=== PATIENT | male | born 1955 | race Caucasian/White ===

== ENCOUNTER 2019-10-04 10:01 | Emergency (ER) | payer OTHER, SELFPAY ==
--- NOTE | ~2019-10-04 | XR_ITS ---
EXAMINATION: XR forearm RT 2V DATE: 10/04/2019 10:39 INDICATION: Right forearm pain and injury. TECHNIQUE: 2 views of right forearm were obtained. COMPARISON: None. FINDINGS: Bone alignment is normal. No fracture. There is mild elbow joint osteoarthritis. There is a n elbow joint effusion. There are enthesophytes at the medial and lateral humeral epicondyles. IMPRESSION: 1. Elbow joint effusion. No fracture identified. 2. Mild right elbow joint osteoarthritis. Reviewed, dictated and finalized at location A.
--- NOTE | ~2019-10-04 | XR_ITS ---
EXAMINATION: XR wrist LT min 3V DATE: 10/04/2019 10:40 INDICATION: Left wrist pain. Injury. TECHNIQUE: 4 views of left wrist were obtained. COMPARISON: None. FINDINGS: Bone alignment is normal. No fracture. There is mild osteoarthritis of triscaphe joint and first metacarpophalangeal joint. IMPRESSION: 1. Mild polyarticular osteoarthritis. Reviewed, dictated and finalized at location A.
[2019-10-04 10:16] VITALS: BP 156/99; PULSE 84; RESP 20; TEMP 36.4; O2SAT 96
--- NOTE | 2019-10-04 10:21 | ED.UPPEXIN ---
HPI - Extremity Injury (Upper) General Chief Complaint: Extremity Injury, Upper Stated Complaint: right elbow,left wrist/hip History of Present Illness HPI narrative: This is a 64 year old male that fell in [place] and is having pain. Patient is unable to move and currently has it in a sling on the right. Patient is also having pain on the left wrist. Related Data Home Medications Medication Instructions Recorded Confirmed amlodipine [Norvasc] 5 mg PO DAILY 10/04/19 10/04/19 hydrochlorothiazide 25 mg PO DAILY 10/04/19 10/04/19 losartan 100 mg PO DAILY 10/04/19 10/04/19 metformin 500 mg PO BID 10/04/19 10/04/19 sitagliptin [Januvia] 100 mg PO DAILY 10/04/19 10/04/19 Allergies Allergy/AdvReac Type Severity Reaction Status Date / Time No Known Allergies Allergy Verified 02/18/14 18:39 Review of Systems Review of Systems: Narrative: CONSTITUTIONAL: Denies fever, chills, or sweats. EYES: Denies visual changes, redness, or discharge. ENT: Denies rhinorrhea, congestion, sore throat, or otalgia. CARDIOVASCULAR:Denies chest pain, palpitations, or edema. RESPIRATORY: Denies cough or dyspnea. GASTROINTESTINAL: Denies abdominal pain, nausea, vomiting, or diarrhea. GENITOURINARY: Denies dysuria or hematuria. SKIN:[Denies rash or itching. MUSCULOSKELETAL:Denies back pain, joint pain, or myalgia. Pain in the right arm from the elbow to the wrist left wrist is hurting and having pain . NEUROLOGIC: Denies headache, numbness, or weakness. PSYCHIATRIC:Denies anxiety or depression [facility] Social History Social History Gender identity (if verbalized by the patient): Male Comments At time as signature, I have reviewed and agree with nursing past medical, social, surgical and family history. Please see nursing chart for further information. There is no relevant family history pertinent to the presenting complaint. Your blood pressure was elevated in the clinic today, I feel that this is due to your acute illness rather than essential hypertension. please follow-up with your regular doctor for further evaluation and monitor for evaluation of hypertension Please FABRIZIO schedule a followup visit with your personal physician with in the next 1-4 weeks for further evaluation and treatment. Also, ask your personal physician to assist you regarding blood pressure. Even blood pressure exceeding 120/80 may indicate pre-hypertension. If your symptoms persist, change or worsen significantly before you can contact your personal physician then please, without delay, go to the emergency department for further evaluation. Exam Narrative: Exam Narrative: GENERAL:Well-appearing, well-nourished, and in no acute distress. HEAD:Normocephalic, atraumatic. EYES: PERRLA and EOMI. ENT: Nares clear, no rhinorrhea or epistaxis. Mucous membranes moist. NECK: Supple. CHEST: Clear to auscultation. No respiratory distress. HEART: Regular rate and rhythm. No murmur heard. Normal peripheral pulses. ABDOMEN: Soft, nontender, nondistended, normal active bowel sounds. EXTREMITIES: Decrease range of motion due to pain. Mild edema to right elbow. SKIN: Warm, dry, no rash. NEURO: No focal deficits. Alert and oriented x3. Course Vital Signs Vital signs: Vital Signs Temperature 97.5 F L 10/04/19 10:16 Pulse Rate 84 10/04/19 10:16 Respiratory Rate 20 10/04/19 10:16 Blood Pressure 156/99 H 10/04/19 10:16 Pulse Oximetry 96 10/04/19 10:16 Temperature 97.5 F L 10/04/19 10:16 Pulse Rate 84 10/04/19 10:16 Respiratory Rate 20 10/04/19 10:16 Blood Pressure 156/99 H 10/04/19 10:16 Pulse Oximetry 96 10/04/19 10:16 Discharge Plan Discharge Clinical Impression: Sprain and strain of wrist, Effusion of elbow joint, right Elbow sprain Qualifiers: Encounter type: initial encounter Laterality: right Qualified Code(s): S53.401A - Unspecified sprain of right elbow, initial encounter Patient Disposition: Home, Self-Care Condition
== END 2019-10-04 11:12 | disposition home or self-care (01) ==
PROVIDERS: Emergency Provider Nurse Practitioner Family
DX: S53.401A Unspecified sprain of right elbow, initial encounter (principal); S63.502A Unspecified sprain of left wrist, initial encounter; S66.912A Strain of unspecified muscle, fascia and tendon at wrist and hand level, left hand, initial encounter; W19.XXXA Unspecified fall, initial encounter; M25.421 Effusion, right elbow; I10 Essential (primary) hypertension; E11.9 Type 2 diabetes mellitus without complications
CPT/HCPCS: 73090; 73110; 99214; G0463

== ENCOUNTER 2022-05-19 11:43 | Inpatient (IN) | payer MEDICARE, SELFPAY ==
[2022-05-19] VITALS (9 sets, daily range): BP systolic 149–163; BP diastolic 81–101; PULSE 79–90; RESP 12–18; TEMP 35.7–36.4; O2SAT 96–100; BMI 31.4
--- NOTE | ~2022-05-19 | CT_ITS ---
EXAMINATION: CT brain wo con INDICATION: Right arm numbness and tingling COMPARISON: None TECHNIQUE: Standard unenhanced head CT. The dose-length product (DLP) was 605.33 mGy-cm. The mA was a djusted according to patient size. Iterative reconstruction technique was employed. FINDINGS: There is no intracranial hemorrhage, acute infarction, or abnormal mass lesion. The ventric les are normal. There is no abnormal mass effect or midline shift. The dong-white matter differentiat ion is normal. The basal cisterns are patent. The orbits are normal. There is mild mucosal thickening of the paranasal sinuses. IMPRESSION: 1. No acute intracranial abnormality. Reviewed, dictated and finalized at location B.
--- NOTE | ~2022-05-19 | MR_ITS ---
EXAMINATION: MR brain/brain stem wo/w con DATE: 05/20/2022 09:51 INDICATION: Stroke with right arm numbness TECHNIQUE: Magnetic resonance imaging (MRI) of the brain and brainstem was performed without and with 20 mL Multihance intravenous contrast. Sequences included sagittal and axial T1-weighted SE, axial d iffusion-weighted FS SE, axial T2*-weighted GRE, axial T2-weighted FLAIR, and axial T2-weighted FSE. Postcontrast axial and coronal T1-weighted SE was obtained. Apparent diffusion coefficient (ADC) maps were created. COMPARISON: Head CT and CT angiogram dated 05/19/2022 FINDINGS: There are no areas of restricted diffusion to suggest acute infarction. No intracranial hemorrhage or abnormal intracranial mass lesion. There are scattered areas of nonspecific increased T2-weighted si gnal intensity in the cerebral white matter, predominantly involving the deep and periventricular whi te matter. There are no intraparenchymal signal abnormalities seen on the other pulse sequences. The ventricles are symmetric and normal in size. There are no abnormal extra-axial fluid collections. Erasmo w voids are seen in the cerebral arteries on the T2-weighted sequences consistent with their expected patency. Mild mucosal thickening in the bilateral ethmoid sinuses. Nonspecific 1.5-2 cm nodular lucille on of low signal intensity in the subcutaneous tissues in the midline nuchal region. No evident enhan cing component appreciated on postcontrast images. Visualized orbits and soft tissues are otherwise u nremarkable. There are no areas of abnormal enhancement on the post contrast images. IMPRESSION: 1. Mild scattered nonspecific white matter T2 hyperintensity which is within normal limits for age an d likely sequela of chronic small vessel ischemic disease. No acute infarct or other intracranial pro cess. 2. Nonspecific 1.5-2 cm nodular region of low signal intensity in the subcutaneous tissues at the mi dline nuchal region. The low signal intensity and absence of enhancement suggests either fibrosis or postoperative scarring. Correlate with clinical history. Reviewed, dictated and finalized at location A. IMPRESSION: 1. Mild scattered nonspecific white matter T2 hyperintensity which is within no rmal limits for age and likely sequela of chronic small vessel ischemic disease . No acute infarct or other intracranial process. 2. Nonspecific 1.5-2 cm nodular region of low signal intensity in the subcutan eous tissues at the midline nuchal region. The low signal intensity and absence of enhancement suggests either fibrosis or postoperative scarring. Correlate w ith clinical history.
--- NOTE | ~2022-05-19 | CT_ITS ---
EXAMINATION: CTA brain carotid DATE: 05/19/2022 14:20 INDICATION: Right hemiparesis. TECHNIQUE: Computed tomographic angiography (CTA) of the head was performed with 100 mL Omnipaque-350 intravenous contrast. CTA of the neck was performed with intravenous contrast. Automated exposure co ntrol and iterative reconstruction technique were employed. The dose-length product was 1220.56 mGy-c m. Maximum intensity projection and volume rendered 3D-reconstructions were created by the [facility] on a separate workstation. COMPARISON: Head CT 05/19/2022 FINDINGS: HEAD CTA: There is no intracranial hemorrhage, acute infarction, or abnormal intracranial mass lesion . The ventricles are normal in size. The orbits are normal. There is mild mucosal thickening in the p aranasal sinuses. The mastoid air cells are normal. Right vertebral artery is dominant. There is tota l occlusion of distal left vertebral artery. There is moderate stenosis of right P1 posterior cerebra l artery. There is total occlusion of left P1 posterior cerebral artery with reconstitution. The post erior communicating arteries are normal. There is mild stenosis of intracranial right internal caroti d artery. There is moderate stenosis of intracranial left internal carotid artery. There is moderate stenosis of left M1 middle cerebral artery. There is no significant stenosis of the anterior cerebral arteries. Anterior communicating artery is normal. There is no aneurysm. NECK CTA: Calcified mediastinal lymph nodes are consistent with old granulomatous disease. There is n o free intraperitoneal fluid. There is plaque in the proximal internal carotid arteries. There is 0% stenosis of the proximal right internal carotid artery relative to normal distal artery lumen diamete r (NASCET criteria). There is 0% stenosis of the proximal left internal carotid artery relative to no rmal distal artery lumen diameter. There is mild cervical spondylosis. IMPRESSION: 1. Normal brain parenchyma. 2. 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 3. 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 4. Moderate stenosis of intracranial left internal carotid artery, left M1 middle cerebral artery, an d right P1 posterior cerebral artery. 5. 0% stenosis of the proximal internal carotid arteries relative to normal distal artery lumen diame ters (NASCET criteria). Reviewed, dictated and finalized at location A. IMPRESSION: 1. Normal brain parenchyma. 2. 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 3. 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 4. Moderate stenosis of intracranial left internal carotid artery, left M1 midd le cerebral artery, and right P1 posterior cerebral artery. 5. 0% stenosis of the proximal internal carotid arteries relative to normal dis crystal artery lumen diameters (NASCET criteria).
--- NOTE | ~2022-05-19 | XR_ITS ---
EXAMINATION: XR chest 1V DATE: 05/19/2022 12:26 INDICATION: Right-sided numbness and tingling. TECHNIQUE: A single frontal view of the chest was obtained on 2 radiographs. COMPARISON: Chest 2 views 06/29/2012 FINDINGS: There is mild atelectasis in left lower lung zone. No pleural effusion or pneumothorax. The heart size is normal. Calcified mediastinal lymph nodes are consistent with old granulomatous diseas e. IMPRESSION: 1. Mild atelectasis in left lower lung zone. Reviewed, dictated and finalized at location A.
--- NOTE | 2022-05-19 12:06 | ECG_ITS ---
Measurements Intervals [place] Rate: 81 P: 53 RI: 228 QRS: -7 QRSD: 94 T: 20 QT: 381 QTc: 444 Interpretive Statements SINUS RHYTHM WITH FIRST DEGREE AV BLOCK NONSPECIFIC ST & T-WAVE ABNORMALITY NO PREVIOUS ECG AVAILABLE FOR COMPARISON Electronically Signed On 05-20-2022 14:58:24 CDT by Kayla Gomez M.D.
[2022-05-19 13:07] LABS: Basophils Absolute Auto 0.1 K/mm3 (0.0-0.1); Basophils Percent Auto 0.7 % (0.2-1.2); Eosinophils Absolute Auto 0.1 K/mm3 (0-0.3); Hematocrit 44.7 % (42.0-52.0); Hemoglobin 15.1 g/dL (14.0-18.0); Immature Granulocyte Absolute 0.03 K/mm3 (0.00-0.031); Immature Granulocyte Percent A 0.4 % (0-0.5); Lymphocytes Absolute Auto 1.43 K/mm3 (0.9-3.2); Lymphocytes Percent Auto 20.3 % (18.3-44.2); Mean Corpuscular HGB Conc 33.8 g/dl (32-36); Mean Corpuscular Hemoglobin 30.4 pg (26-34); Mean Corpuscular Volume 89.9 fl (80-100); Mean Platelet Volume 10.3 fl (7.4-10.4); Monocytes Absolute Auto 0.7 K/mm3 (0.1-0.6); Monocytes Percent Auto 9.5 % (2.6-8.5); Neutrophils Absolute Auto 4.7 K/mm3 (1.3-6.7); Neutrophils Percent Auto 67.1 % (45.5-73.1); Platelet Count Result 248 k/mm3 (150-375); Red Blood Count 4.97 M/mm3 (4.6-6.20); Red Cell Distribution Width 12.6 % (11.5-14.5); White Blood Count 7.1 K/mm3 (4.5-10.0)
[2022-05-19 13:19] LABS: Alanine Aminotransferase 36 U/L (6-50); Albumin Level 4.7 g/dL (3.5-5.1); Alkaline Phosphatase 110 U/L (38-126); Anion Gap 9 mmol/L (8-16); Aspartate Amino Transferase 27 U/L (17-59); Bilirubin,Total 0.7 mg/dL (0.2-1.3); Blood Urea Nitrogen 15 mg/dL (9-20); Calcium 9.5 mg/dL (8.4-10.2); Carbon Dioxide 26 mmol/L (22-30); Chloride 100 mmol/L (98-107); Estimated CRCL calculation 140 ml/min; Estimated Glomerular Filt Rate > 60; Glucose 263 mg/dL (65-110); Sodium 135 mmol/L (137-145)
[2022-05-19 13:20] LABS: Prothrombin Time 12.9 Seconds (11.1-14.7)
[2022-05-19 13:21] LABS: Partial Thromboplastin Time 31.4 SECONDS (22.3-36.8)
[2022-05-19 13:31] LABS: Troponin I 0.083 ng/mL (0.000-0.034)
--- NOTE | 2022-05-19 14:00 | ED.NEUROSD ---
HPI - Neuro Symptoms/Deficit General Chief Complaint: Neuro Symptoms/Deficit Stated Complaint: right sided weakness since 0500 Time Seen by Provider: 05/19/22 13:53 Source: patient and RN notes reviewed Mode of arrival: ambulatory Limitations: no limitations History of Present Illness HPI Narrative: This is a 66 year old male with history of hypertension who presents for right side weakness and numbness. PAtient reports he woke up this morning at 5 am with right side weakness and right side numbness. He went to bed around 9 pm last night. His has also noticed that patient has unsteady gait this morning. Patient denies headache, dizziness, facial droop, chest pain, sob. He denies history of TIA or stroke. He also denies speech issues today Related Data Home Medications Medication Instructions Recorded Confirmed amlodipine 5 mg tablet (Norvasc) 5 mg PO DAILY 10/04/19 05/19/22 hydrochlorothiazide 25 mg tablet 25 mg PO DAILY 10/04/19 05/19/22 losartan 100 mg tablet 100 mg PO DAILY 10/04/19 05/19/22 metformin 500 mg tablet 100 mg PO BID 10/04/19 05/19/22 acetaminophen 500 mg tablet 1,000 mg PO QID PRN Pain 05/19/22 05/19/22 ascorbic acid (vitamin C) 1,000 mg 1,000 mg PO HS 05/19/22 05/19/22 tablet dapagliflozin 10 mg tablet 10 mg PO DAILY 05/19/22 05/19/22 (Farxiga) glipizide 5 mg tablet, extended 5 mg PO DAILY 05/19/22 05/19/22 release 24 hr magnesium 400 mg PO HS 05/19/22 05/19/22 trazodone 50 mg tablet 75 mg PO HS 05/19/22 05/19/22 Allergies Allergy/AdvReac Type Severity Reaction Status Date / Time No Known Allergies Allergy Verified 05/19/22 18:07 Review of Systems Constitutional: Constitutional: Denies weakness Cardiovascular: Cardiovascular: Denies syncope, Denies rapid heart rate, Denies irregular heart rhythm, Denies leg edema and Denies dyspnea Respiratory: Respiratory: Denies chest congestion, Denies hemoptysis, Denies excessive phlegm production and Denies dyspnea Gastrointestinal: Gastrointestinal: Denies abdominal pain, Denies hematochezia, Denies diarrhea and Denies vomiting Genitourinary: Genitourinary: Denies hematuria, Denies dysuria, Denies penile discharge and Denies testicular pain Musculoskeletal: Musculoskeletal: Denies joint swelling, Denies loss of height and Denies muscle weakness Neurologic: Denies syncope, Reports focal weakness, Reports numbness and Reports weakness PMFSH Past Medical History Medical History Diabetes mellitus Hypertension Obstructive sleep apnea Surgical History Surgical History History of tonsillectomy S/P foot surgery, left Family History Family History Mother Lung cancer Father Acute myocardial infarction Rheumatoid arthritis Social History Social History Social History: The patient states that he lives a home alone. He has 1 daughter. He has a significant other. 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 Code status full code Smoking packs per day: 2 Smoking cigarettes per day: 40.0 Years smoked: 30 Smoking pack-years: 60.00 Smoking status: Former smoker Alcohol intake: current Drinks per week: 5 Substance use: former Substance use type: marijuana Last use: years ago Lack of Transportation: No Lack of Food: Never True Current Housing: I Have Housing Concerned About Future Housing: No Difficulty Paying Gas/Electric Bills: No Difficulty Paying for Meds: No Currently Unemployed: No Education: Decline to Answer Difficulty w/ Childcare or Family Care: No Gender identity (if verbalized by the patient): Male Spiritual care concerns: No Exam Const: General: no acute distress and alert Nutritional Appearance: well nourished Orientation/consciousness: patient oriented x3 HENMT
[2022-05-19] MEDS: ASPIRIN 81 MG CHEWABLE TABLET 324 MG PO (16:16)
[2022-05-19] MEDS: CLOPIDOGREL BISULFATE 75 MG TABLET 150 MG PO (16:19)
[2022-05-19 16:38] LABS: Troponin I 0.075 ng/mL (0.000-0.034)
--- NOTE | 2022-05-19 17:55 | ADMGEN ---
This patient, Jesus Laughlin, was admitted to [facility] Room 314-02. Patient/family oriented to hospital policies and general routines including ID bracelet, bed and alarms, visiting hours, pain management, procedures, bathroom and other care routines, personal items, smoking policy, room service/diet, and visiting hours. Information on how to activate the Rapid Response Team has been discussed. Patient/Family are encouraged to report perceived risks to care and to ask questions if they do not understand what they are told or what they should do.
--- NOTE | 2022-05-19 18:55 | PC.NURSE ---
Pt unaware of cva diagnosis. Deferred CVA teaching. No anticoagulation given.
--- NOTE | 2022-05-19 21:44 | PM.IMHP ---
H&P: HPI History of Present Illness Date/Time: 05/19/22 21:44 Chief Complaint: Neuro symptoms Narrative: This is a 66-year-old male patient who has a history of hypertension and diabetes. The patient came to the emergency room with complaints of right-sided weakness and numbness. Patient stated that he woke up at 5:00 a.m. this morning and had right-sided weakness as well some numbness. The patient was having difficulty moving his right arm and right leg. He was having difficulty ambulating. The patient went to bed around 9:00 a.m. last night and that was his last reported normal. The noticed that the patient was unsteady this morning. The patient denies any chest pain or palpitation he denies any headache dizziness or any facial droop. No chest pain. He has no prior history of any strokes or TIAs. Patient is not having any difficulty with his speech at this time. The patient has chronic amblyopia to right eye. The patient denies any double vision or any difficulty seeing. Head and neck CTA was read as the followingNormal brain parenchyma. 2. 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 3. 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 4. Moderate stenosis of intracranial left internal carotid artery, left M1 middle cerebral artery, and right P1 posterior cerebral artery. 5. 0% stenosis of the proximal internal carotid arteries relative to normal distal artery lumen diameters (NASCET criteria). Chest x-ray was read as mild atelectasis in left lower lung zones. Head CT was read as no acute intracranial abnormality. The patient was not a candidate for tPA as he is outside the window for treatment. Neurology has been consulted and recommended Plavix and aspirin. His NIH score was noted to be 4.. The patient was given a full-strength aspirin and 150 mg of Plavix. Troponin 0.083 and 0.075.. His blood sugar was noted to be 242. The patient is being admitted to inpatient status on the date of service of 05/19/2022. Review of Systems Review of Systems: All systems reviewed & are unremarkable except as noted in HPI and below Constitutional: Constitutional: Reports as per HPI and Reports no additional constitutional complaints Eyes: Eyes: Reports as per HPI and Reports no additional eye complaints ENT: Reports system reviewed and no additional complaints, except as documented and Reports Normal hearing present Cardiovascular: Cardiovascular: Reports no additional cardiovascular complaints Respiratory: Respiratory: Reports no additional respiratory complaints and Reports no additional respiratory complaints Gastrointestinal: Gastrointestinal: Reports as per HPI and Reports no additional gastrointestinal complaints Musculoskeletal: Musculoskeletal: Reports no additional musculoskeletal complaints Integumentary/Breasts: Skin/Breast: Reports system reviewed and no additional complaints, except as docu and Reports as per HPI Neurologic: Reports system reviewed and no additional complaints, except as documented, Reports as per HPI and Reports Normal hearing present Psychiatric: Psychiatric: Reports no additional psychiatric complaints and Reports as per HPI Endocrine: Endocrine: Reports no additional endocrine complaints Hematologic/Lymphatic: Hematologic/Lymphatic: Reports no additional hematologic/lymphatic complaints Allergic/Immunologic: Allergic/Immunologic: Reports no additional allergic/immunologic complaints [facility] Past Medical History Medical History (Updated 05/20/22 @ 00:12 by Itzel Nunes NP) Diabetes mellitus Hypertension Obstructive sleep apnea Surgical History Surgical History (Updated 05/20/22 @ 00:12 by Itzel Nunes NP) History of tonsillectomy S/P foot surgery, left Family History Family History (Updated 05/20/22 @ 00:14 by Itzel Nunes NP) Mother Lung cancer Father Acute myocardial infarction Rheumatoid arthritis Social History Social History (
[2022-05-19 22:12] LABS: Glucose Point of Care 242 mg/dl (65-105)
[2022-05-20] VITALS (10 sets, daily range): BP systolic 147–178; BP diastolic 81–95; PULSE 70–91; RESP 16–20; TEMP 35.6–36.7; O2SAT 96–98
--- NOTE | 2022-05-20 | ECHO_ITS ---
Patient Info Name: Jesus Laughlin Age: 67 years : 1955 Gender: Male Ht: 75 in Wt: 251 lbs BSA: 2.48 m2 HR: 83 bpm BP: 178 / 89 mmHg Heart Rhythm: Sinus Rhythm Exam Date: 05/20/2022 10:45 AM Exam Location: [facility] Patient Status: Inpatient Admit Date: 05/19/2022 Staff Ordering Physician: Itzel Nunes NP Still Operator Helper: Frederic Green RDCS, RT Attending Provider: Nela Kraft PA-C Referring Physician: Des GARCIA; Exam Type: CA echo dop bubble study w con Study Info Indications - CVA Complete two-dimentional, color flow and Doppler transthoracic echocardiogram is performed with agitated saline and with contrast to opacify the left ventricle and to improve the delineation of the left ventricle endocardial borders. Summary 1. Left ventricular systolic function is normal, estimated at 60-65%. 2. There is moderately increased left ventricular wall thickness. 3. The left ventricular diastolic function is grade I diastolic dysfunction. 4. Right ventricular systolic function is normal. 5. Intact interatrial septum visualized by color flow and agitated saline imaging. Negative bubble study. 6. There is mild aortic valve calcification. 7. There is mild aortic valve regurgitation. 8. There is mild mitral valve regurgitation. 9. There is mild aortic atherosclerosis. 10. The aortic root size at the sinus of Valsalva is dilated. Left Ventricle Left ventricular chamber dimension is normal. Left ventricular systolic function is normal, estimated at 60-65%. There is moderately increased left ventricular wall thickness. The left ventricular diastolic function is grade I diastolic dysfunction. Global longitudinal strain is abnormal at -12 %. Right Ventricle Right ventricular chamber dimension is normal. Right ventricular systolic function is normal. Left Atria Left atrial chamber dimension is normal. Right Atria Right atrial chamber dimension is normal. Atrial Septum Intact interatrial septum visualized by color flow and agitated saline imaging. Negative bubble study. Aortic Valve The aortic valve is probable trileaflet. There is no aortic valve stenosis. There is mild aortic valve regurgitation. There is mild aortic valve calcification. Pulmonic Valve The pulmonic valve is not well visualized. Mitral Valve The mitral valve has normal leaflets. There is mild mitral valve regurgitation. Tricuspid Valve There is trace tricuspid valve regurgitation. Pericardium/Pleural The pericardium appears epicardial fat pad. There is no pericardial effusion. Inferior Vena Cava Normal inferior vena cava with >50% collapse upon inspiration consistent with normal right atrial pressure, 3 mmHg. Aorta The aortic root size at the sinus of Valsalva is dilated. There is mild aortic atherosclerosis. Left Ventricular Outflow Tract Name Value Normal LVOT 2D LVOT Diameter 2.2 cm LVOT Doppler LVOT Peak Gradient 3 mmHg LVOT Mean Gradient 2 mmHg LVOT VTI 18 cm LVOT VTI/AV VTI Ratio
[2022-05-20] MEDS: WATER FOR IRRIGATION, STERILE 1,000 ML BOTTLE 1000 ML (00:33)
[2022-05-20] MEDS: ACETAMINOPHEN 500 MG TABLET 1000 MG PO (04:35)
[2022-05-20] MEDS: CLOPIDOGREL BISULFATE 75 MG TABLET PO (04:47)
[2022-05-20] MEDS: LOSARTAN POTASSIUM 100 MG TABLET PO (04:47)
[2022-05-20] MEDS: amLODIPine BESYLATE 5 MG TABLET PO (04:47)
[2022-05-20] MEDS: hydroCHLOROthiazide 25 MG TABLET PO (04:47)
[2022-05-20 07:42] LABS: Basophils Percent Auto 0.6 % (0.2-1.2); Eosinophils Absolute Auto 0.2 K/mm3 (0-0.3); Eosinophils Percent Auto 2.6 % (0-4.4); Hematocrit 43.5 % (42.0-52.0); Hemoglobin 14.6 g/dL (14.0-18.0); Immature Granulocyte Absolute 0.03 K/mm3 (0.00-0.031); Immature Granulocyte Percent A 0.4 % (0-0.5); Lymphocytes Absolute Auto 1.56 K/mm3 (0.9-3.2); Lymphocytes Percent Auto 22.5 % (18.3-44.2); Mean Corpuscular HGB Conc 33.6 g/dl (32-36); Mean Corpuscular Hemoglobin 30.4 pg (26-34); Mean Corpuscular Volume 90.4 fl (80-100); Mean Platelet Volume 10.6 fl (7.4-10.4); Monocytes Absolute Auto 0.8 K/mm3 (0.1-0.6); Monocytes Percent Auto 11.7 % (2.6-8.5); Neutrophils Absolute Auto 4.3 K/mm3 (1.3-6.7); Neutrophils Percent Auto 62.2 % (45.5-73.1); Platelet Count Result 239 k/mm3 (150-375); Red Blood Count 4.81 M/mm3 (4.6-6.20); Red Cell Distribution Width 12.6 % (11.5-14.5); White Blood Count 6.9 K/mm3 (4.5-10.0)
[2022-05-20 07:53] LABS: Alanine Aminotransferase 33 U/L (6-50); Albumin Level 4.2 g/dL (3.5-5.1); Alkaline Phosphatase 84 U/L (38-126); Anion Gap 7 mmol/L (8-16); Aspartate Amino Transferase 26 U/L (17-59); Bilirubin,Total 0.6 mg/dL (0.2-1.3); Blood Urea Nitrogen 18 mg/dL (9-20); Calcium 8.8 mg/dL (8.4-10.2); Carbon Dioxide 29 mmol/L (22-30); Chloride 98 mmol/L (98-107); Estimated CRCL calculation 120 ml/min; Estimated Glomerular Filt Rate > 60; Glucose 313 mg/dL (65-110); Magnesium 2.1 mg/dL (1.6-2.3); Potassium 3.9 mmol/L (3.4-5.0); Sodium 134 mmol/L (137-145)
[2022-05-20 08:15] LABS: Glucose Point of Care 303 mg/dl (65-105)
[2022-05-20] MEDS: INSULIN ASPART (*BKC) 100 UNITS/ML SUB-Q ×3 (08:16→18:35)
[2022-05-20] MEDS: glipiZIDE XL 5 MG TABCR PO (08:17)
--- NOTE | 2022-05-20 09:40 | ECG_ITS ---
Measurements Intervals [place] Rate: 72 P: -25 VA: 191 QRS: -15 QRSD: 102 T: 51 QT: 418 QTc: 457 Interpretive Statements SINUS RHYTHM NONSPECIFIC ST AND T WAVE ABNORMALITY COMPARED TO ECG 05/19/2022 13:55:34 NO SIGNIFICANT FINDINGS Electronically Signed On 05-20-2022 16:09:01 CDT by Kayla Gomez M.D.
--- NOTE | 2022-05-20 10:40 | PM.CNCAR ---
Assessment and Plan Assessment and plan (1) Elevated troponin: Code(s): R77.8 - Other specified abnormalities of plasma proteins Status: Acute Assessment and Plan: troponin levels were drawn and were found to be mildly elevated at 0.083, 0.075, and 0.047. this is not consistent with acute coronary syndrome. He is not having any chest pain and has no history of chest pain. He does however have multiple risk factors for coronary artery disease. Therefore, I recommended follow-up in our office with possible stress testing. Check a lipid panel. Echo is pending. Will follow up with the results of that study when they become available. History of Present Illness History of Present Illness Consult date/time: 05/20/22 10:40 Requesting physician: Nela Kraft PA-C Consult reason: Other (elevated troponin) Reason For Visit: Acute CVA Narrative: Mr. Laughlin is a 67-year-old male with a history of diabetes mellitus, hypertension, former smoker. This is a patient who presented to the hospital with a chief complaint of loss of equilibrium and right-sided weakness. 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 During the process of his initial workup troponin levels were drawn and were mildly elevated. He denies having chest pain at any point in time. He denies any shortness of breath, palpitations, syncope, presyncope, paroxysmal nocturnal dyspnea, orthopnea. Currently, he is resting comfortably in bed and has no complaints. He is wanting to know when he can leave the hospital. Review of Systems Review of Systems: All systems reviewed & are unremarkable except as noted in HPI and below PMFSH Past Medical History Medical History Diabetes mellitus Hypertension Obstructive sleep apnea Surgical History Surgical History History of tonsillectomy S/P foot surgery, left Family History Family History Mother Lung cancer Father Acute myocardial infarction Rheumatoid arthritis Social History Social History Social History: The patient states that he lives a home alone. He has 1 daughter. He has a significant other. 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 Code status full code Smoking packs per day: 2 Smoking cigarettes per day: 40.0 Years smoked: 30 Smoking pack-years: 60.00 Smoking status: Former smoker Alcohol intake: current Drinks per week: 5 Substance use: former Substance use type: marijuana Last use: years ago Lack of Transportation: No Lack of Food: Never True Current Housing: I Have Housing Concerned About Future Housing: No Difficulty Paying Gas/Electric Bills: No Difficulty Paying for Meds: No Currently Unemployed: No Education: Decline to Answer Difficulty w/ Childcare or Family Care: No Gender identity (if verbalized by the patient): Male Spiritual care concerns: No Meds Home Medications and Allergies Home Medications Medication Instructions Recorded Confirmed Type amlodipine 5 mg tablet (Norvasc) 5 mg PO DAILY 10/04/19 05/19/22 History hydrochlorothiazide 25 mg tablet 25 mg PO DAILY 10/04/19 05/19/22 History ibuprofen 600 mg tablet 600 mg PO TID PRN pain #20 tabs 10/04/19 05/19/22 Rx losartan 100 mg tablet 100 mg PO DAILY 10/04/19 05/19/22 History metformin 500 mg tablet 100 mg PO BID 10/04/19 05/19/22 History acetaminophen 500 mg tablet 1,000 mg PO QID PRN Pain 05/19/22 05/19/22 History ascorbic acid (vitamin C) 1,000 mg 1,000 mg PO HS 05/19/22 05/19/22 History tablet dapagliflozin 10 mg tablet 10 mg PO DAILY 05/19/22 05/19/22 History (Farxiga) glipizide 5 mg tablet, extended 5 mg PO DAILY 05/19/22 05/19/22 History rel
--- NOTE | 2022-05-20 11:10 | WPDNEURCNPN ---
Consult date: 05/20/22 HPI: Jesus Laughlin is a 67 year old male admitted to the hospital through the emergency room for the complaints of right-sided weakness since 5:00 a.m. patient arrived in the Emergency Room ambulatory condition with no limitation but complaining of the hypertension with right-sided weakness and numbness and with information that he woke up at 5:00 a.m. with the symptoms though he had gone to the bed last night at 9:00 p.m. perfectly fine patient was also noted to have unsteady gait by his in the morning he had no other associated complaints. 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 Review of Systems Review of Systems: All systems reviewed & are unremarkable except as noted in HPI and below PMFSH Past Medical History Medical History (Updated 05/20/22 @ 00:12 by Itzel Nunes NP) Diabetes mellitus Hypertension Obstructive sleep apnea Surgical History Surgical History (Updated 05/20/22 @ 00:12 by Itzel Nunes NP) History of tonsillectomy S/P foot surgery, left Family History Family History (Updated 05/20/22 @ 00:14 by Itzel Nunes NP) Mother Lung cancer Father Acute myocardial infarction Rheumatoid arthritis Social History Social History (Updated 05/20/22 @ 00:14 by Itzel Nunes NP) Social History: The patient states that he lives a home alone. He has 1 daughter. He has a significant other. 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 Code status full code Smoking packs per day: 2 Smoking cigarettes per day: 40.0 Years smoked: 30 Smoking pack-years: 60.00 Smoking status: Former smoker Alcohol intake: current Drinks per week: 5 Substance use: former Substance use type: marijuana Last use: years ago Lack of Transportation: No Lack of Food: Never True Current Housing: I Have Housing Concerned About Future Housing: No Difficulty Paying Gas/Electric Bills: No Difficulty Paying for Meds: No Currently Unemployed: No Education: Decline to Answer Difficulty w/ Childcare or Family Care: No Gender identity (if verbalized by the patient): Male Spiritual care concerns: No Meds Home Medications and Allergies Home Medications Medication Instructions Recorded Confirmed Type amlodipine 5 mg tablet (Norvasc) 5 mg PO DAILY 10/04/19 05/19/22 History hydrochlorothiazide 25 mg tablet 25 mg PO DAILY 10/04/19 05/19/22 History ibuprofen 600 mg tablet 600 mg PO TID PRN pain #20 tabs 10/04/19 05/19/22 Rx losartan 100 mg tablet 100 mg PO DAILY 10/04/19 05/19/22 History metformin 500 mg tablet 100 mg PO BID 10/04/19 05/19/22 History acetaminophen 500 mg tablet 1,000 mg PO QID PRN Pain 05/19/22 05/19/22 History ascorbic acid (vitamin C) 1,000 mg 1,000 mg PO HS 05/19/22 05/19/22 History tablet dapagliflozin 10 mg tablet 10 mg PO DAILY 05/19/22 05/19/22 History (Farxiga) glipizide 5 mg tablet, extended 5 mg PO DAILY 05/19/22 05/19/22 History release 24 hr magnesium 400 mg PO HS 05/19/22 05/19/22 History trazodone 50 mg tablet 75 mg PO HS 05/19/22 0
[2022-05-20] MEDS: PERFLUTREN LIPID MICROSPHERES 1.5 ML VIAL DILUTED TO 10 ML TOTAL VOLUME IV PUSH (11:20)
--- NOTE | 2022-05-20 11:20 | IVDEFINITY ---
Prior to administration of IV Definity the patient was educated on the risks and benefits of the imaging enhancing agent including potential adverse side effects. The patient verbalized understanding. Allergies were verified. No exclusion criteria were identified and at least one of the following inclusion criteria were met: 1) physician request, 2) patient technically difficult to image (per the [place] [employer] guidelines of two or more segments not discernable within the apical view), or 3) questionable left ventricular function. ?
[2022-05-20 11:39] LABS: Troponin I 0.047 ng/mL (0.000-0.034)
[2022-05-20 12:05] LABS: Glucose Point of Care 266 mg/dl (65-105)
[2022-05-20] MEDS: ASPIRIN 81 MG CHEWABLE TABLET PO (12:07)
--- NOTE | 2022-05-20 15:21 | P.PNIM_ITS ---
Progress Note: A&P Assessment and Plan (1) Vertebral artery occlusion: Code(s): I65.09 - Occlusion and stenosis of unspecified vertebral artery Status: Acute Assessment and Plan: Patient presented with complaints of right-sided weakness and unsteady gait. 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 Recommendations are appreciated * patient has been started on aspirin and Plavix Spoke with [facility] transfer line regarding these findings. Dr. Elliott, neurology, accepts patient for inpatient transfer for further evaluation. reports findings are likely chronic, however with significant occlusions and TIA, patient may benefit from angiogram and further intervention as deemed appropriate Awaiting bed availability, hopeful tomorrow. Recommends continuing DAPT and closely monitoring of blood pressure trends to maintain systolic BP 140-180 (2) TIA (transient ischemic attack): Code(s): G45.9 - Transient cerebral ischemic attack, unspecified Status: Acute Assessment and Plan: Brain MRI without acute infarct or other intracranial process. Transient right-sided symptoms upon wakening consistent with TIA * consultation to Neurology. Recommendations are appreciated * continue aspirin and Plavix * begin high-intensity statin * evaluated by PT and OT and discharged from services * plan as above (3) Cerebrovascular accident: Code(s): I63.9 - Cerebral infarction, unspecified Status: Ruled-out Assessment and Plan: Brain MRI without acute infarct or other intracranial process and nonspecific low signal intensity suggestive of fibrosis or postoperative scarring * consultation to Neurology. Recommendations are appreciated * evaluated by PT and OT and discharged from services (4) Elevated troponin: Code(s): R77.8 - Other specified abnormalities of plasma proteins Status: Acute Assessment and Plan: troponins elevated on presentation and 0.083, 0.075, and 0.047 * no chest pain at this time * not felt to be consistent with acute coronary syndrome per Cardiology recommendations * echo pending * outpatient follow-up and consider stress test (5) Diabetes mellitus: Code(s): E11.9 - Type 2 diabetes mellitus without complications Status: Acute Assessment and Plan: A1c is 8.0 * continue Accu-Cheks, sliding scale insulin, hypoglycemic protocol * home Farxiga is non formulary * metformin on hold * continue glipizide * monitor glucose trends closely (6) Hypertension: Code(s): I10 - Essential (primary) hypertension Status: Acute Assessment and Plan: blood pressures are stable * allow for permissive hypertension in the setting of vertebral stenosis. Per [facility], Goal systolic BP 140-180 and treatment required only for sys tolic BP >180 * hold home antihypertensives * monitor BP trends (7) Obstructive sleep apnea: Code(s): G47.33 - Obstructive
--- NOTE | 2022-05-20 15:21 | PM.IMPN ---
Progress Note: A&P Assessment and Plan (1) Vertebral artery occlusion: Code(s): I65.09 - Occlusion and stenosis of unspecified vertebral artery Status: Acute Assessment and Plan: Patient presented with complaints of right-sided weakness and unsteady gait. Head CT with no acute findings head/neck CTA showed normal brain parenchyma with total occlusion of distal left vertebral artery, total occlusion of left P1 posterior cerebral artery with reconstitution, moderate stenosis of intracranial left internal carotid artery, left M1 middle cerebral artery and right P1 posterior cerebral artery, 0% stenosis of proximal internal carotid arteries brain MRI with mild scattered nonspecific white matter T2 hyperintensity without acute infarct or other intracranial process and nonspecific low signal intensity suggestive of fibrosis or postoperative scarring consultation to Neurology. Recommendations are appreciated patient has been started on aspirin and Plavix Spoke with [facility] transfer line regarding these findings. Dr. Elliott, neurology, accepts patient for inpatient transfer for further evaluation. reports findings are likely chronic, however with significant occlusions and TIA, patient may benefit from angiogram and further intervention as deemed appropriate Awaiting bed availability, hopeful tomorrow. Recommends continuing DAPT and closely monitoring of blood pressure trends to maintain systolic BP 140-180 (2) TIA (transient ischemic attack): Code(s): G45.9 - Transient cerebral ischemic attack, unspecified Status: Acute Assessment and Plan: Brain MRI without acute infarct or other intracranial process. Transient right-sided symptoms upon wakening consistent with TIA consultation to Neurology. Recommendations are appreciated continue aspirin and Plavix begin high-intensity statin evaluated by PT and OT and discharged from services plan as above (3) Cerebrovascular accident: Code(s): I63.9 - Cerebral infarction, unspecified Status: Ruled-out Assessment and Plan: Brain MRI without acute infarct or other intracranial process and nonspecific low signal intensity suggestive of fibrosis or postoperative scarring consultation to Neurology. Recommendations are appreciated evaluated by PT and OT and discharged from services (4) Elevated troponin: Code(s): R77.8 - Other specified abnormalities of plasma proteins Status: Acute Assessment and Plan: troponins elevated on presentation and 0.083, 0.075, and 0.047 no chest pain at this time not felt to be consistent with acute coronary syndrome per Cardiology recommendations echo pending outpatient follow-up and consider stress test (5) Diabetes mellitus: Code(s): E11.9 - Type 2 diabetes mellitus without complications Status: Acute Assessment and Plan: A1c is 8.0 continue Accu-Cheks, sliding scale insulin, hypoglycemic protocol home Farxiga is non formulary metformin on hold continue glipizide monitor glucose trends closely (6) Hypertension: Code(s): I10 - Essential (primary) hypertension Status: Acute Assessment and Plan: blood pressures are stable allow for permissive hypertension in the setting of vertebral stenosis. Per [facility], Goal systolic BP 140-180 and treatment required only for systolic BP >180 hold home antihypertensives monitor BP trends (7) Obstructive sleep apnea: Code(s): G47.33 - Obstructive sleep apnea (adult) (pediatric) Status: Acute Assessment and Plan: Continue with home settings for CPAP/BiPAP Time Spent With Patient Time: 70 minutes spent on this encounter Time with patient: Greater than 35 minutes Subjective Date/time seen: 05/20/22 15:21 Interval history: date of service: 05/20/2022 Jesus Laughlin is a 67-year-old male with a history of type 2 romy
[2022-05-20 16:42] LABS: Cholesterol 223 mg/dL (0-200); HDL Direct 42 mg/dL; Triglycerides 332 mg/dL (<150)
[2022-05-20 16:54] LABS: LDL Cholesterol Direct 124 mg/dL
[2022-05-20 17:21] LABS: Glucose Point of Care 274 mg/dl (65-105)
[2022-05-20 20:25] LABS: Glucose Point of Care 343 mg/dl (65-105)
[2022-05-20] MEDS: ASCORBIC ACID 500 MG TABLET 1000 MG PO (20:37)
--- NOTE | 2022-05-20 20:48 | PC.NURSE ---
8 units ordered for Bs 343 per JOSS Nunes
--- NOTE | 2022-05-20 20:51 | PC.NURSE ---
called pharmacy twice for trazodone, only 50 mg in draw, scheduled dose 75mg po HS
[2022-05-20] MEDS: INSULIN ASPART (*BKC) 100 UNITS/ML 8 UNITS SUB-Q (20:55)
[2022-05-20] MEDS: traZODone HCL 25 MG TABLET 75 MG PO (22:19)
--- NOTE | 2022-05-21 00:06 | PC.NURSE ---
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
--- NOTE | 2022-05-21 16:28 | PM.TDS ---
Transfer Discharge Sum: Prov Provider Date of admission: 05/19/22 17:15 Primary care physician: SENSOR SPECIALIST PHYSICIAN Admitting clinician: Anahi Hull DO Consults: 05/19/22 16:05 Consult to Physician Routine Comment: Consulting Provider: Ciaran Duke Reason for consultation: right side weakness, numbness Has provider been notified: Yes 05/20/22 Consult to Physician Routine Comment: left vm with brittany @09,spoke to brittany(,) Consulting Provider: Kayla Gomez scallop dredger/MD group to consult: Cardiology Reason for consultation: Chest pain, elevated trop Has provider been notified: Yes DS: Admitting Diagnosis Discharge Date 05/21/22 Admitting Diagnosis TIA DS: Discharge Diagnosis Discharge Diagnosis (1) Vertebral artery occlusion: Code(s): I65.09 - Occlusion and stenosis of unspecified vertebral artery Status: Acute Assessment and Plan: Patient presented with complaints of right-sided weakness and unsteady gait. Head CT with no acute findings head/neck CTA showed normal brain parenchyma with total occlusion of distal left vertebral artery, total occlusion of left P1 posterior cerebral artery with reconstitution, moderate stenosis of intracranial left internal carotid artery, left M1 middle cerebral artery and right P1 posterior cerebral artery, 0% stenosis of proximal internal carotid arteries brain MRI with mild scattered nonspecific white matter T2 hyperintensity without acute infarct or other intracranial process and nonspecific low signal intensity suggestive of fibrosis or postoperative scarring consultation to Neurology. Recommendations are appreciated patient has been started on aspirin and Plavix Spoke with [facility] transfer line regarding these findings. Dr. Elliott, neurology, accepts patient for inpatient transfer for further evaluation. reports findings are likely chronic, however with significant occlusions and TIA, patient may benefit from angiogram and further intervention as deemed appropriate Awaiting bed availability, hopeful tomorrow. Recommends continuing DAPT and closely monitoring of blood pressure trends to maintain systolic BP 140-180 (2) TIA (transient ischemic attack): Code(s): G45.9 - Transient cerebral ischemic attack, unspecified Status: Acute Assessment and Plan: Brain MRI without acute infarct or other intracranial process. Transient right-sided symptoms upon wakening consistent with TIA consultation to Neurology. Recommendations are appreciated continue aspirin and Plavix begin high-intensity statin evaluated by PT and OT and discharged from services plan as above (3) Cerebrovascular accident: Code(s): I63.9 - Cerebral infarction, unspecified Status: Ruled-out Assessment and Plan: Brain MRI without acute infarct or other intracranial process and nonspecific low signal intensity suggestive of fibrosis or postoperative scarring consultation to Neurology. Recommendations are appreciated evaluated by PT and OT and discharged from services (4) Elevated troponin: Code(s): R77.8 - Other specified abnormalities of plasma proteins Status: Acute Assessment and Plan: troponins elevated on presentation and 0.083, 0.075, and 0.047 no chest pain at this time not felt to be consistent with acute coronary syndrome per Cardiology recommendations echo pending outpatient follow-up and consider stress test (5) Diabetes mellitus: Code(s): E11.9 - Type 2 diabetes mellitus without complications Status: Acute Assessment and Plan: A1c is 8.0 continue Accu-Cheks, sliding scale insulin, hypoglycemic protocol home Farxiga is non formulary metformin on hold continue glipizide monitor glucose trends closely (6) Hypertension: Code(s): I10 - Essential (primary) hypertension Status: Acute Assessment and Plan:
== END 2022-05-21 00:10 | disposition short-term general hospital (02) | DRG 68 ==
LOC: ANHED 16:03 → ANH3MEDSUR 17:40
PROVIDERS: Nurse Practitioner; Physician Assistant; Admitting Provider Student in an Organized Health Care Education/Training Program; Emergency Provider General Practice; Visit Provider Internal Medicine
DX: I65.02 Occlusion and stenosis of left vertebral artery (principal); G81.91 Hemiplegia, unspecified affecting right dominant side; I66.22 Occlusion and stenosis of left posterior cerebral artery; E11.9 Type 2 diabetes mellitus without complications; G47.33 Obstructive sleep apnea (adult) (pediatric); H53.001 Unspecified amblyopia, right eye; I25.10 Atherosclerotic heart disease of native coronary artery without angina pectoris; I10 Essential (primary) hypertension; R77.8 Other specified abnormalities of plasma proteins; Z87.891 Personal history of nicotine dependence; Z79.84 Long term (current) use of oral hypoglycemic drugs; Z99.89 Dependence on other enabling machines and devices
CPT/HCPCS: 36415; 70450; 70496; 70498; 70553; 71045; 80053; 80061; 82948; 83036; 83735; 84443; 84484; 85025; 85610; 85730; 93005; 94660; 96375; 97161; 97165; 99285; A9270; A9577; C8929; J1815; Q9957; Q9967

== ENCOUNTER 2023-12-18 05:34 | Emergency (ER) | payer MEDICARE, SELFPAY ==
--- NOTE | ~2023-12-18 | XR_ITS ---
Clinical Indication: Weakness PA and lateral views of the chest: Comparison: 05/19/2022 Findings: There is linear scarring or atelectasis left lung base. The lungs are otherwise clear, with out evidence of focal consolidation or pleural effusion. Calcified right paratracheal lymph node note d. Cardiomediastinal silhouette is within normal limits. Bones and soft tissues are unremarkable. Impression: Linear scarring or atelectasis left lung base, otherwise clear lungs. Reviewed, dictated and finalized at location M. Impression: Linear scarring or atelectasis left lung base, otherwise clear lungs.
--- NOTE | ~2023-12-18 | CT_ITS ---
CT ANGIOGRAM NECK AND HEAD History: Left-sided leaning. Technique: Axial noncontrast imaging of the brain was performed. Serial spiral axial images through t he head and neck were then obtained during arterial phase IV injection of 100 cc of Omnipaque 350. 3- D postprocessing and MIP images were then reconstructed on the remote workstation. Dose reduction [place] was used on this scan by utilizing automated exposure control and iterative reconstruction [place]. The dose-length product (DLP) was 2007.47 mGy-cm. CTA neck findings: There is occlusion of the distal left vertebral artery (axial images 180-190). Th ere is a focal moderate to high-grade stenosis at the distal right vertebral artery (axial image 198) . Remainder of other more proximal vertebral arteries are patent, unremarkable. Bilateral common kinney tid, internal carotid, and external carotid arteries are patent. There is calcified plaque at the lef t carotid bifurcation, without significant stenosis. The proximal right internal carotid artery demon strates 0% stenosis relative to the normal distal artery lumen diameter. The proximal left internal c arotid artery demonstrates 0% stenosis relative to the normal distal artery lumen diameter. CTA head findings: Basilar artery and posterior cerebral arteries are patent. Focal moderate to high- grade stenosis of the distal basilar artery. Posterior cerebral arteries are predominantly fed via po sterior communicating arteries. There are extensive atherosclerotic calcifications of the cavernous p ortions of the distal internal carotid arteries with areas of moderate and high-grade stenosis. Middl e cerebral arteries and anterior cerebral arteries are patent. No large vessel occlusion. No aneurysm evident. Axial noncontrast imaging of the brain is unremarkable. No acute infarct, intracranial hemorrhage, or mass lesion identified. Teran-white differential preserved. No mass effect or midline shift. Ventricl es and subarachnoid spaces are minimally prominent. Paranasal sinuses and mastoid air cells are clear . Calvarium intact. Impression: No parenchymal abnormality the brain seen. 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 Focal high-grade stenosis of the distal right vertebral artery. Focal moderate to high-grade stenosis of the distal basilar artery. Multiple areas of moderate and high-grade stenosis in the cavernous portions of the distal internal c arotid arteries, with extensive atherosclerotic calcifications. Reviewed, dictated and finalized at location M. Impression: No parenchymal abnormality the brain seen. 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 Focal high-grade stenosis of the distal right vertebral artery. Focal moderate to high-grade stenosis of the distal basilar artery. Multiple areas of moderate and high-grade stenosis in the cavernous portions of the distal internal carotid arteries, with extensive atherosclerotic calcifica tions.
[2023-12-18 05:35] VITALS: BP 162/76; PULSE 73; RESP 14; TEMP 36.4; O2SAT 96
[2023-12-18 05:42] VITALS: PULSE 73
[2023-12-18 05:43] VITALS: BP 162/76; PULSE 70; RESP 16; TEMP 36.4; O2SAT 96
--- NOTE | 2023-12-18 05:44 | ECG_ITS ---
Test Date: 2023-12-18 05:46:30 Measurements Intervals [place] Rate: 71 P: 76 HI: 246 QRS: 11 QRSD: 113 T: 53 QT: 451 QTc: 492 Interpretive Statements SINUS RHYTHM WITH FIRST DEGREE AV BLOCK WITH OCCASIONAL SUPRAVENTRICULAR PREMATURE COMPLEXES INFERIOR INFARCT, AGE INDETERMINATE EXTENSIVE ANTERIOR INFARCT, AGE INDETERMINATE BORDERLINE T WAVE ABNORMALITY- HIGH LATERAL LEADS ABNORMAL ECG No previous ECG available for comparison Electronically Signed On 12-18-2023 06:51:53 CDT by Chris Garcia D.O.
[2023-12-18 05:56] LABS: Basophils Percent Auto 0.6 % (0.2-1.2); Eosinophils Absolute Auto 0.2 K/mm3 (0-0.3); Eosinophils Percent Auto 2.6 % (0-4.4); Hematocrit 39.8 % (42.0-52.0); Hemoglobin 13.6 g/dL (14.0-18.0); Immature Granulocyte Absolute 0.03 K/mm3 (0.00-0.031); Immature Granulocyte Percent A 0.5 % (0-0.5); Lymphocytes Absolute Auto 1.39 K/mm3 (0.9-3.2); Lymphocytes Percent Auto 21.6 % (18.3-44.2); Mean Corpuscular HGB Conc 34.2 g/dl (32-36); Mean Corpuscular Hemoglobin 30.6 pg (26-34); Mean Corpuscular Volume 89.6 fl (80-100); Mean Platelet Volume 10.3 fl (7.4-10.4); Monocytes Absolute Auto 0.7 K/mm3 (0.1-0.6); Monocytes Percent Auto 10.4 % (2.6-8.5); Neutrophils Absolute Auto 4.1 K/mm3 (1.3-6.7); Neutrophils Percent Auto 64.3 % (45.5-73.1); Platelet Count Result 203 k/mm3 (150-375); Red Blood Count 4.44 M/mm3 (4.6-6.20); Red Cell Distribution Width 12.7 % (11.5-14.5); White Blood Count 6.4 K/mm3 (4.5-10.0)
[2023-12-18 06:06] LABS: Alanine Aminotransferase 21 U/L (6-50); Albumin Level 4.1 g/dL (3.5-5.1); Alkaline Phosphatase 74 U/L (38-126); Anion Gap 9 mmol/L (4-12); Aspartate Amino Transferase 20 U/L (17-59); Bilirubin,Total 0.8 mg/dL (0.2-1.3); Blood Urea Nitrogen 18 mg/dL (9-20); Calcium 8.8 mg/dL (8.4-10.2); Carbon Dioxide 28 mmol/L (22-30); Chloride 100 mmol/L (98-107); Estimated CRCL calculation 105 ml/min; Estimated Glomerular Filt Rate > 60; Glucose 251 mg/dL (65-110); Potassium 3.5 mmol/L (3.4-5.0); Sodium 137 mmol/L (137-145)
--- NOTE | 2023-12-18 06:18 | ED.WEAKNESS ---
HPI - Weakness General Chief complaint: Weakness Stated complaint: weakness/fall in bathroom Time Seen by Provider: 12/18/23 05:54 History of Present Illness HPI Narrative: Patient reports that he woke up around 4 this morning and felt strange, he was getting ready for work in the bathroom when he fell, he states that he has been leaning to the left side. Has never had symptoms like this before though he has had a mini-stroke in the past, he is on blood thinners but cannot recall why. Related Data Home Medications Medication Instructions Recorded Confirmed amlodipine 5 mg tablet (Norvasc) 5 mg PO DAILY 10/04/19 05/19/22 hydrochlorothiazide 25 mg tablet 25 mg PO DAILY 10/04/19 05/19/22 losartan 100 mg tablet 100 mg PO DAILY 10/04/19 05/19/22 metformin 500 mg tablet 100 mg PO BID 10/04/19 05/19/22 acetaminophen 500 mg tablet 1,000 mg PO QID PRN Pain 05/19/22 05/19/22 ascorbic acid (vitamin C) 1,000 mg 1,000 mg PO HS 05/19/22 05/19/22 tablet dapagliflozin propanediol 10 mg 10 mg PO DAILY 05/19/22 05/19/22 tablet (Farxiga) glipizide 5 mg tablet, extended 5 mg PO DAILY 05/19/22 05/19/22 release 24 hr magnesium 400 mg PO HS 05/19/22 05/19/22 trazodone 50 mg tablet 75 mg PO HS 05/19/22 05/19/22 Allergies Allergy/AdvReac Type Severity Reaction Status Date / Time No Known Allergies Allergy Verified 12/18/23 05:42 Review of Systems Review of Systems: All systems reviewed & are unremarkable except as noted in HPI and below PMFSH Past Medical History Medical History Diabetes mellitus Hypertension Obstructive sleep apnea Surgical History Surgical History History of tonsillectomy S/P foot surgery, left Family History Family History Mother Lung cancer Father Acute myocardial infarction Rheumatoid arthritis Social History Social History Social History: The patient states that he lives a home alone. He has 1 daughter. He has a significant other. 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 Code status full code Smoking packs per day: 2 Smoking cigarettes per day: 40.0 Years smoked: 30 Smoking pack-years: 60.00 Smoking status: Former smoker Alcohol intake: current Drinks per week: 5 Substance use: former Substance use type: marijuana Last use: years ago Lack of Transportation: No Lack of Food: Never True Current Housing: I Have Housing Concerned About Future Housing: No Difficulty Paying Gas/Electric Bills: No Difficulty Paying for Meds: No Currently Unemployed: No Education: Decline to Answer Difficulty w/ Childcare or Family Care: No Gender identity (if verbalized by the patient): Male Spiritual care concerns: No Exam Narrative: EXAMINATION OF ORGAN SYSTEMS/BODY AREAS: Constitutional: Vital signs per nursing GENERAL:[No acute distress, non-toxic appearing.] HEAD: Normal with no signs of head trauma. EYES: EOMI, conjunctiva normal ENT: Hearing grossly intact LUNGS: Nonlabored breathing. HEART: [Regular rate and rhythm] ABD: [Soft], [nontender to palpation] EXT: Normal range of motion SKIN: [No rashes or lesions.] NEURO: [Alert and oriented x 3. Very slightly weaker left compared to right.] PSYCH: Normal affect Course Vital Signs Vital signs: Vital Signs Temperature 97.6 F 12/18/23 05:35 Pulse Rate 73 12/18/23 05:35 Respiratory Rate 14 12/18/23 05:35 Blood Pressure 162/76 H 12/18/23 05:35 Pulse Oximetry 96 12/18/23 05:35 Oxygen Delivery Room Air 12/18/23 05:35 Temperature 97.6 F 12/18/23 05:43 Pulse Rate 70 12/18/23 07:17 Respiratory Rate 18 12/18/23 07:17 Blood Pressure 150/79 H 12/18/23 07:17 Pulse Oximetry 99 12/18/23 07:17 Oxygen Delivery Room Air 12/18/23 05:35 MDM - Weakness MDM Narrative Medical decision making narrative: patient presents after he woke up feeling weak and strange, leading onto the left side, and falling. On exam he does have some very subtle drift of his left arm compared to the right, and some very subtle dysmetria to the left arm compared to the right. NIH stroke scale would be about 1-2. Last known well was last night at 8:00 p.m. he, he is also on blood thinners, so not a tPA candidate. Stroke workup was initiated. 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 Focal high-grade stenosis of the distal right vertebral artery. Focal moderate to high-grade stenosis of the distal basilar artery. Multiple areas of moderate and high-grade stenosis in the cavernous portions of the distal internal carotid arteries, with extensive atherosclerotic calcifications D/w patient; we have no neurology here; will need to transfer. Patient requests [facility]. D/w [facility] transfer center. D/w neuro Dr Batista accepts; very long waitlist at [facility]. Will try [facility] [place], accepting neuro Dr. Hartman; they think they will have a bed today. Pt and GF updated on plan. Lab Data 12/18/23 05:51 12/18/23 05:51 Labs: Lab Results 12/18/23 Range/Units 05:51 WBC 6.4 (4.5-10.0) K/mm3 RBC 4.44 L (4.6-6.20) M/mm3 Hgb 13.6 L (14.0-18.0) g/dL Hct 39.8 L (42.0-52.0) % MCV 89.6 (80-100) fl MCH 30.6 (26-34) pg MCHC 34.2 (32-36) g/dl RDW 12.7 (11.5-14.5) % Plt Count 203 (150-375) k/mm3 MPV 10.3 (7.4-10.4) fl Immature Gran % (Auto) 0.5 (0-0.5) % Neut % (Auto) 64.3 (45.5-73.1) % Lymph % (Auto) 21.6 (18.3-44.2) % [place] % (Auto) 10.4 H (2.6-8.5) % Eos % (Auto) 2.6 (0-4.4) % Baso % (Auto) 0.6 (0.2-1.2) % Lymph # (Auto) 1.39 (0.9-3.2) K/mm3 [place] # (Auto) 0.7 H (0.1-0.6) K/mm3 Eos # (Auto) 0.2 (0-0.3) K/mm3 Baso # (Auto) 0.0 (0.0-0.1) K/mm3 Abs Immat Gran (auto) 0.03 (0.00-0.031) K/mm3 Absolute Neuts (auto) 4.1 (1.3-6.7) K/mm3 Absolute Nucleated RBC 0.000 (0.0-0.012) K/mm3 Nucleated RBC % 0.0 (0.0-0.2) % PT 13.7 (11.1-14.7) Seconds INR 1.0 APTT 32.5 (22.3-36.8) Seconds Sodium 137 (137-145) mmol/L Potassium 3.5 (3.4-5.0) mmol/L Chloride 100 (98-107) mmol/L Carbon Dioxide 28 (22-30) mmol/L Anion Gap 9 (4-12) mmol/L BUN 18 (9-20) mg/dL Creatinine 0.80 (0.7-1.3) mg/dL Estim Creat Clear Calc 105 ml/min Estimated GFR > 60 (59 - ) Glucose 251 H (65-110) mg/dL Calcium 8.8 (8.4-10.2) mg/dL Total Bilirubin 0.8 (0.2-1.3) mg/dL AST 20 (17-59) U/L ALT 21 (6-50) U/L Alkaline Phosphatase 74 (38-126) U/L Troponin I < 0.012 (0.000-0.034) ng/mL Total Protein 7.0 (6.3-8.2) g/dL Albumin 4.1 (3.5-5.1) g/dL Discharge Plan Discharge Clinical Impression: Stroke-like symptoms Patient Disposition: Acute Care Hospital Condition: Stable Prescriptions: No Action metformin 500 mg Tablet 100 mg PO BID amlodipine [Norvasc] 5 mg Tablet 5 mg PO DAILY hydrochlorothiazide 25 mg Tablet 25 mg PO DAILY losartan 100 mg Tablet 100 mg PO DAILY ibuprofen 600 mg tablet 600 mg PO TID PRN (Reason: pain) Qty: 20 0RF ascorbic acid (vitamin C) 1,000 mg Tablet 1,000 mg PO HS Farxiga 10 mg tablet 10 mg PO DAILY magnesium 400 mg PO HS trazodone 50 mg tablet 75 mg PO HS glipizide 5 mg tablet extended release 24hr 5 mg PO DAILY acetaminophen 500 mg Tablet 1,000 mg PO QID PRN (Reason: Pain) Follow-up/Referrals: UNKNOWN,DOCTOR [Primary Care Provider] - Quality Stroke Date of last known normal: 12/17/23 Time of last known normal: 20:30 Stroke Scale Stroke Scale 1: Stroke scale date:: 12/18/23 Stroke scale time:: 05:40 1a Level of consciousness: alert-0 1b Level of consciousness questions: answers both correctly-0 1c Level of consciousness commands: obeys both correctly-0 2 Best gaze: normal-0 3 Visual: no visual loss-0 4 Facial palsy: normal-0 5a Motor: left arm: drift-1 5b Motor: right arm: no drift-0 6a Motor: left leg: no drift-0 6b Motor: right leg: no drift-0 7 Limb ataxia: present in one limb-1 8 Sensory: normal-0 9 Best language: no aphasia-0 10 Dysarthria: normal-0 11 Extinction and inattention: no abnormality-0 Level:: 2
[2023-12-18 06:52] LABS: Troponin I < 0.012 ng/mL (0.000-0.034)
[2023-12-18 06:56] LABS: Prothrombin Time 13.7 Seconds (11.1-14.7)
[2023-12-18 06:57] LABS: Partial Thromboplastin Time 32.5 Seconds (22.3-36.8)
--- NOTE | 2023-12-18 07:05 | PC.NURSE ---
Patient requesting to use urinal at bedside. Patient denies dizziness and stands on side of bed without difficulty.
[2023-12-18 07:17] VITALS: BP 150/79; PULSE 70; RESP 18; O2SAT 99
[2023-12-18] MEDS: ASPIRIN 81 MG CHEWABLE TABLET 324 MG PO (07:22)
[2023-12-18] MEDS: CLOPIDOGREL BISULFATE 300 MG TABLET PO (07:23)
[2023-12-18] MEDS: ATORVASTATIN 40 MG TABLET 80 MG PO (07:23)
[2023-12-18 08:11] VITALS: BP 157/82; PULSE 70; RESP 18; O2SAT 99
--- NOTE | 2023-12-18 08:40 | PC.NURSE ---
Patient requested to use the urinal with privacy prior to getting on EMS stretcher.
[2023-12-18 08:48] VITALS: BP 165/73; PULSE 69; RESP 12; O2SAT 99
--- NOTE | 2023-12-18 08:58 | PC.NURSE ---
EMS received bedside report and patient requested to use urinal prior to transfer. About 2 min went by and EMS called out that patient could have possible fallen in room. patient found sitting on the floor next to the end of the bed. patient denies hitting his head and reports a scratch on his left knee. Denies wanting to be seen and requested to be transferred. patient is alert x4 and EMS is aware of fall prior to transfer.
== END 2023-12-18 09:08 | disposition short-term general hospital (02) ==
PROVIDERS: Emergency Provider Emergency Medicine
DX: R27.8 Other lack of coordination (principal); W18.30XA Fall on same level, unspecified, initial encounter; E11.9 Type 2 diabetes mellitus without complications; I10 Essential (primary) hypertension; G47.33 Obstructive sleep apnea (adult) (pediatric); Z87.891 Personal history of nicotine dependence
CPT/HCPCS: 36415; 70496; 70498; 71046; 80053; 84484; 85025; 85610; 85730; 93005; 99285; A9270; Q9967